=== PATIENT | female | born 1955 | race Caucasian/White ===

== ENCOUNTER → 2024-02-19 11:35 | Outpatient (REF) | payer MEDICARE, OTHER, SELFPAY | LOC: WDC 11:35 | PROVIDERS: ATTENDING PHYSICIAN Physician Assistant Medical | DX: Z12.31 Encounter for screening mammogram for malignant neoplasm of breast (principal); R06.09 Other forms of dyspnea | CPT/HCPCS: 71046; 77063; 77067 ==

== ENCOUNTER → 2024-03-03 08:03 | Outpatient (REF) | payer MEDICARE, OTHER, SELFPAY | LOC: DHCBC/DCA 08:03 | PROVIDERS: ATTENDING PHYSICIAN Internal Medicine Cardiovascular Disease; FAMILY PHYSICIAN Physician Assistant Medical | DX: R07.2 Precordial pain (principal); R06.09 Other forms of dyspnea | CPT/HCPCS: 78452; 93017; A9500 ==

== ENCOUNTER → 2024-03-06 13:54 | Outpatient (REF) | payer MEDICARE, OTHER, SELFPAY | LOC: HWRAD 13:54 | PROVIDERS: ATTENDING PHYSICIAN Nurse Practitioner Adult Health; FAMILY PHYSICIAN Physician Assistant Medical | DX: R06.02 Shortness of breath (principal); R00.0 Tachycardia, unspecified | CPT/HCPCS: 71275; Q9967 ==

== ENCOUNTER → 2024-03-13 09:12 | Outpatient (REF) | payer MEDICARE, OTHER, SELFPAY | LOC: RCS 09:12 | PROVIDERS: ATTENDING PHYSICIAN Internal Medicine Cardiovascular Disease; FAMILY PHYSICIAN Physician Assistant Medical | DX: R07.2 Precordial pain (principal); R06.09 Other forms of dyspnea | CPT/HCPCS: 93306 ==

== ENCOUNTER → 2024-03-30 14:56 | Outpatient (REF) | payer MEDICARE, OTHER, SELFPAY | LOC: HWRAD 14:56 | PROVIDERS: ATTENDING PHYSICIAN Physician Assistant Medical | DX: E04.1 Nontoxic single thyroid nodule (principal) | CPT/HCPCS: 76536 ==

== ENCOUNTER 2024-05-27 08:44 | Day surgery (SDC) | payer MEDICARE, OTHER, SELFPAY ==
[2024-05-27] VITALS (10 sets, daily range): BP systolic 108–128; BP diastolic 38–68; BMI 45.3
[2024-05-27] MEDS: NSS 394 ML IV (09:54)
--- NOTE | 2024-05-27 11:14 | ITS.CL.CATH ---
[facility] - Catheterization
Cardiac Catheterization
Procedure Report:
CARDIAC CATHETERIZATION REPORT
Date of Procedure: 05/27/2024
Referring: Zeb Bello M.D.
Indication: Dyspnea on exertion, risk factors for coronary artery disease.
PROCEDURE:
1. Right heart catheterization.
2. Left heart catheterization.
3. Coronary angiography.
ACCESS:
6 Vietnamese right radial artery.
5 Vietnamese right antecubital vein.
CATHETERS:
1. 5 Vietnamese balloon wedge.
2. 5 Vietnamese JL 3.5.
3. 5 Vietnamese JR4.
HEMODYNAMIC DATA
Weight (kg): 131.2
AO (s/d/x mmHg): 127/69/95
LV (s/x mmHg): 132/20
PCWP (a/v/x mmHg): 29/25/21
PA (s/d/x mmHg): 42/20/27
RV (s/x mmHg): 43/15
RA (a/v/x mmHg): 20//15
SVC SvO2 (%): 70.3
PA SvO2 (%): 68.2
SaO2 (%): 91.1
Hbg (g/dL): 14.3
CO (L/min): 4.80
CI (L/min/m2): 2.03
TPG (mmHg): 6
PVR (Pulido Units): 1.25
SVR (dynes*seconds*cm^-5): 1333
AVO2 Diff (Volume %): 4.45
AV gradient (x, mmHg): None.
AV area (cm2): Normal.
LEFT VENTRICULOGRAPHY: Not performed.
CORONARY ANGIOGRAPHY
Dominance: Right.
Left Main: Normal size, bifurcating vessel. There is no coronary artery disease
LAD: Normal size vessel giving rise to 1 significant diagonal which bifurcates into an upper and lower branch. There is no coronary artery disease. 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
Ramus: Congenitally absent.
Circumflex: Normal size, nondominant vessel giving rise to a single marginal. There is no coronary artery disease.
RCA: [ ]Normal size, dominant vessel. There is no coronary artery disease.
Closure Device: None.
Radiation dose (mGy): 465.71
DAP (cm2.Gy): 39.7458
Fluoroscopy time (minutes): 3.1
Sedation time (minutes): 7
CONCLUSIONS:
1. 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
2. Moderately elevated filling pressures (LVEDP = 20 mmHg, PCWP = 21 mmHg at 131.2 kg).
3. Mild postcapillary pulmonary hypertension (PA = 40 01/14/2027, PCWP = 21, SVR = 2.03).
RECOMMENDATIONS:
1. Expectant management after cardiac catheterization via Right radial/antecubital approach.
2. Limited weight bearing on the right wrist for one week.
3. Start furosemide 40 mg p.o. daily for elevated filling pressures. Switch from losartan/HCTZ to losartan to avoid hyponatremia.
4. Stable for outpatient cardiology follow-up.
Copy to: Zeb Bello M.D., Gaby Mayfield, MARÍA
Daniel Arce DO, FACC, FACP
== END 2024-05-27 14:40 | disposition home or self-care (01) ==
LOC: CATH 08:44
PROVIDERS: ATTENDING PHYSICIAN Internal Medicine Cardiovascular Disease; FAMILY PHYSICIAN Physician Assistant Medical; OTHER PHYSICIAN Internal Medicine Cardiovascular Disease
DX: R06.09 Other forms of dyspnea (principal); Q24.5 Malformation of coronary vessels; I27.29 Other secondary pulmonary hypertension; E78.2 Mixed hyperlipidemia; I51.7 Cardiomegaly; I10 Essential (primary) hypertension
CPT/HCPCS: 93460; C1894

== ENCOUNTER → 2025-03-01 12:36 | Outpatient (REF) | payer MEDICARE, OTHER, SELFPAY | LOC: WDC 12:36 | PROVIDERS: ATTENDING PHYSICIAN Physician Assistant Medical | DX: Z12.31 Encounter for screening mammogram for malignant neoplasm of breast (principal) | CPT/HCPCS: 77063; 77067 ==

== ENCOUNTER → 2025-03-31 09:16 | Outpatient (REF) | payer MEDICARE, OTHER, SELFPAY | LOC: RAD 09:16 | PROVIDERS: ATTENDING PHYSICIAN Physician Assistant Medical | DX: E04.1 Nontoxic single thyroid nodule (principal) | CPT/HCPCS: 76536 ==